=== PATIENT | female | born 1935 | race Caucasian/White ===

== ENCOUNTER 2024-02-07 10:19 | Outpatient (CLI) | payer MEDICARE, OTHER | END 2024-02-07 10:20 | disposition home or self-care (01) | LOC: CSHCT 10:19 | PROVIDERS: ATTEND Urology | DX: R31.9 Hematuria, unspecified (principal); N39.0 Urinary tract infection, site not specified; N28.1 Cyst of kidney, acquired; N32.89 Other specified disorders of bladder; K86.2 Cyst of pancreas; K59.00 Constipation, unspecified | CPT/HCPCS: 74178; 82565 ==

== ENCOUNTER 2025-05-13 08:45 | Outpatient (CLI) | payer MEDICARE, OTHER | END 2025-05-13 08:46 | disposition home or self-care (01) | LOC: CSHULT 08:45 | PROVIDERS: ATTEND Urology | DX: K52.9 Noninfective gastroenteritis and colitis, unspecified (principal); R19.5 Other fecal abnormalities; R11.0 Nausea; N30.01 Acute cystitis with hematuria; N28.1 Cyst of kidney, acquired; N39.41 Urge incontinence; K86.2 Cyst of pancreas | CPT/HCPCS: 76700; 76856 ==